=== PATIENT | female | born 1995 | race Two or more races ===

== ENCOUNTER 2021-10-17 16:46 | Emergency (ER) | payer OTHER ==
[~2021-10-17] VITALS: Ht 157.5 cm; Wt 50.8 kg
[2021-10-17] MEDS ORDERED: PRENATALES (17:05)
== END 2021-10-17 19:28 | disposition home or self-care (01) ==
LOC: ER 16:46
DX: O03.9 Complete or unspecified spontaneous abortion without complication (principal)